=== PATIENT | female | born 1980 | race Caucasian/White ===

== ENCOUNTER → 2019-06-18 17:25 | Outpatient (CLI) | payer BC ==
[2011-03-09 13:54] VITALS: BMI 40.1
== END | disposition home or self-care (01) ==
LOC: D.RAD 17:25
PROVIDERS: ATTEND Pain Medicine Interventional Pain Medicine
DX: M54.5 Low back pain (principal); M54.2 Cervicalgia; M25.549 Pain in joints of unspecified hand; M79.671 Pain in right foot

== ENCOUNTER → 2020-01-21 09:09 | Outpatient (CLI) | payer BC ==
[2011-03-09 13:54] VITALS: BMI 40.1
[~2020-01-21 09:09] MED LIST: CLINORIL150 MG PO; HYDROCODON-ACE1 EAC2 PO; ZANAFLEX4 MG PO
[2020-01-23 11:05] VITALS: BMI 37.8
== END | disposition home or self-care (01) ==
LOC: D.LAB 09:09
PROVIDERS: ATTEND Podiatrist
DX: Z11.59 Encounter for screening for other viral diseases (principal)

== ENCOUNTER 2020-01-23 09:53 | Day surgery (SDC) | payer BC ==
[~2020-01-23] VITALS: Ht 162.6 cm; Wt 99.8 kg
--- NOTE | ~2020-01-23 | OP ---
PATIENT NAME: KATLYN MESA MEDICAL RECORD: [id number] :76 LOCATION:[facility] ADMISSION DATE: SURGEON: ELSA RIVERA DATE OF OPERATION: 01/23/2020 SURGEON: Elsa Rivera DPM PREOPERATIVE DIAGNOSIS: Hallux abductovalgus, right foot. POSTOPERATIVE DIAGNOSIS: Hallux abductovalgus, right foot. PROCEDURE: Charles bunionectomy, right foot. ANESTHESIA: Local with monitored anesthesia care. HEMOSTASIS: Pneumatic ankle tourniquet inflated to 250 mmHg. ESTIMATED BLOOD LOSS: Minimal. MATERIALS: 3-0 Vicryl, 4-0 nylon, one 2.5 mm [employer] screw. INJECTABLES: 12 mL of 0.5% bupivacaine plain. INDICATION: The patient has longstanding history of pain associated with a bunion deformity on the right foot. We have discussed surgical correction of this chronically painful deformity. We have reviewed the risks and benefits of the procedure. Complications were discussed. All questions were answered. She was appropriately consented for Charles bunionectomy, right foot. DESCRIPTION OF PROCEDURE: The patient was brought in the operating room and placed on the operating table in a supine position. A time-out was called with Dr. Rivera who identified the patient, the surgical site, and the surgery to be performed. Once appropriate anesthesia was obtained, the foot was prepped and draped in the usual aseptic manner. The pneumatic ankle tourniquet was inflated to 250 mmHg on the well-padded right ankle. Attention was directed to the first metatarsophalangeal joint, where a 6 cm linear incision was made just medial to the extensor hallucis longus tendon. This incision was carried deep to soft tissue with care being taken to retract all vital neurovascular structures. All bleeders were cauterized along the way. The first intermetatarsal space was then entered utilizing both sharp and blunt dissection. The conjoined tendon of the adductor hallucis muscle was noted at the base of the proximal phalanx and sharply transected at this level. Attention was then directed more proximally to the level of the fibular sesamoidal ligament. This soft tissue structure was then sharply transected. The periosteum was then reflected from the head of the first metatarsal and the base of the proximal phalanx, thus revealing the hypertrophied medial eminence of the first metatarsal. Utilizing a sagittal saw, the hypertrophied medial eminence was resected. Attention was directed to the medial side of the first metatarsal where a V-shaped osteotomy was created in the first metatarsal head. This was a [id number] osteotomy with the apex oriented distally. The capital fragment was translocated laterally and temporally fixated with a K-wire. Next, utilizing manufacture's recommended technique, one 2.5 mm screw OPERATIVE REPORT [id number] KATLYN MESA was placed across the osteotomy. All remaining overhanging bone from the medial aspect of the first metatarsal shaft was then removed with a bone saw. The surgical site was irrigated with copious amounts of normal sterile saline via bulb syringe. The periosteum was reapproximated and coapted using 3-0 Vicryl, subQ was reapproximated and coapted using 4-0 Vicryl, and the skin was reapproximated and coapted using 4-0 nylon. A dressing consisting of Adaptic, Xeroform, 4 x 4, Kerlix, and an Mayito bandage was applied to the right foot. The pneumatic ankle tourniquet was deflated and cap refill time was immediate to all digits of the right foot. The patient will be discharged home with instructions to ice and elevate the right foot. She was dispensed a boot to further offload the foot. She has my cellphone number for any after-hours difficulties and there were no complications with this procedure. NTS:[id number] Voice Confirmation ID: [id number] DOCUMENT ID: [id number] ELSA RIVERA CC: [id number] DICTATION DATE: 01/23/20 143 [employer] [place]: 01/23/20 1847 [facility] 01/23/20 [facility] [address] [place] [address]
[2020-01-23 10:43] LABS: HCG SERUM NEGATIVE (NEGATIVE)
[2020-01-23 10:44] LABS: HEMATOCRIT 42.1 % (36.0-48.0); MCH 28.1 pg (26.0-34.0); MCHC 33.3 g/dL (31.0-37.0); MCV 84.5 fL (80.0-100.0); MEAN PLATELET VOLUME 8.6 fL (7.4-10.4); RBC 4.98 10x6/uL (4.00-5.40); RDW 13.4 % (11.5-14.5); WBC 6.3 10x3/uL (4.8-10.8)
[2020-01-23 11:05] VITALS: BP 173/115; Ht 162.6 cm; Wt 99.8 kg
--- NOTE | 2020-01-23 17:13 | NUR ---
1400 ARRIVED IN PAIN FROM PACU TO RIGHT FOOT. BOOT ON TOES PINK WITH GOOD SENSATION WIGGLES FREELY. IV SITE W/O SWELLING. ELEVATED MORE ON ANOTHER PILLOW. ICE PACK APPLIED BEHIND KNEE. DEMEROL RX ON BACK ORDER HERE AND IN MOST PHARMACYS IN [facility]. ANESTHESIA CALLED FOR PAIN MEDICATION WHILE IN OUT PT. 1440 MEDICATED IV PAIN WITH GOOD RESULTS. DR BRYANT CALLED ABOUT UNABLE TO FILL RX DR WILL BE OVER TO TO GIVE ANOTHER WRITTEN RX. 1530 ASSISTED UP TO BATHROOM WITH WALKER. PT VOIDED X1 1630 D/C HOME IV REMOVED
== END 2020-01-23 16:30 | disposition home or self-care (01) ==
LOC: D.OPS 09:53 → D.PAN 12:00 → D.OPS 16:30
PROVIDERS: Anesthesiology; ATTEND Podiatrist
DX: M20.11 Hallux valgus (acquired), right foot (principal)